=== PATIENT | female | born 1970 | race Caucasian/White ===

== ENCOUNTER → 2017-02-08 | Outpatient (CLI) | payer BC ==
[~2017-02-08] MED LIST: ALBU1AER9 INH; ASPI81TA28 PO
--- NOTE | 2017-02-08 16:38 | MAMMOGRAPHY REPORT ---
BILATERAL DIGITAL SCREENING MAMMOGRAM TOMOSYNTHESIS WITH CAD: 02/08/2017 CLINICAL HISTORY: Routine screening. Patient has no complaints. TECHNIQUE: Breast tomosynthesis in addition to standard 2D mammography was performed. Current study was also evaluated with a Computer Aided Detection (CAD) system. COMPARISON: Comparison is made to exams dated: 02/05/2016 mammogram, 10/23/2013 ultrasound, and 2013 mammogram - [facility]. BREAST COMPOSITION: The tissue of both breasts is extremely dense, which lowers the sensitivity of mammography. FINDINGS: There is a 5 mm nodular asymmetry in the lateral posterior right breast, only seen on the CC view and corresponding tomosynthesis images (slice 27), for which additional spot compression to mosynthesis views and possibly ultrasound are recommended. There is a stable grouping of microcalcifications in the upper outer anterior left breast. No other suspicious mass, architectural distortion or cluster of microcalcifications is seen. IMPRESSION: ACR BI-RADS CATEGORY 0: INCOMPLETE EVALUATION: NEED ADDITIONAL IMAGING EVALUATION The 5 mm nodular asymmetry in the lateral right breast needs additional evaluation. The patient will be called to schedule an appointment. Approximately 10% of breast cancers are not detected with mammography. A negative mammographic repor t should not delay biopsy if a clinically suggestive mass is present. Jennifer Valentine M.D. ay/:02/08/2017 16:27:41 Alumni Relations Manager: Pattie AWAD(Jared)(M), [facility] letter sent: Addl Imaging 0 BI-RADS Code: ACR BI-RADS Category 0: Incomplete Evaluation: Need Additional Imaging Evaluation
== END | disposition home or self-care (01) ==
LOC: C.MAMM 14:38
PROVIDERS: ATTEND Obstetrics & Gynecology
DX: Z12.31 Encounter for screening mammogram for malignant neoplasm of breast (principal); R92.8 Other abnormal and inconclusive findings on diagnostic imaging of breast

== ENCOUNTER → 2017-02-10 | Outpatient (CLI) | payer BC ==
--- NOTE | 2017-02-10 16:16 | MAMMOGRAPHY REPORT ---
UNILATERAL RIGHT DIGITAL DIAGNOSTIC MAMMOGRAM TOMOSYNTHESIS AND TARGETED RIGHT ULTRASOUND: 02/10/2017 CLINICAL HISTORY: 46 year old woman called back from screening mammography for a 5 mm nodular asymmet ry in the lateral right breast. TECHNIQUE: Spot compression right CC and MLO tomosynthesis views were obtained. COMPARISON: Comparison is made to exams dated: 02/08/2017 mammogram, 02/05/2016 mammogram, 10/23/2013 u ltrasound, and 10/23/2013 mammogram - [facility]. BREAST COMPOSITION: The tissue of the right breast is heterogeneously dense, which may obscure small masses. FINDINGS: The 5 mm nodular asymmetry in the lateral right breast is thought to persist with the spot compression CC view, in the lateral middle one third of the breast. No associated architectural dis tortion or cluster microcalcification. On the spot compression MLO view, there is a 4 x 5 mm nodular asymmetry in the superior right breast on the MLO view. Further evaluation with ultrasound was perf ormed in the lateral and superior aspect of the right breast. Targeted ultrasound was performed throughout the lateral and superior right breast. In the 11:30 axi s, 2 cm from the nipple, there is a predominantly anechoic cystic appearing mass measuring 4.9 x 2.3 x 3.9 mm. This cystic mass contains numerous thin internal nonvascular septations or it could repres ent a microcyst cluster. Definitive characterization with ultrasound guided core biopsy is read mend ed to exclude a solid and cystic mass. In the 8:00 right breast, 1 cm from the nipple, there is an o michelle parallel circumscribed isoechoic solid-appearing mass measuring 6.0 x 2.7 x 5.2 mm. This is thou ght to correlate with the nodular asymmetry in the lateral right breast and could represent a benign fibroadenoma. Nevertheless, definitive characterization with ultrasound guided core biopsy is recomm ended. There is lobulated hypoechoic tissue in the 2:00 right breast, thought to simply represent no rmal tissue and stromal fibrosis. No other suspicious solid or cystic mass is seen in the superior l ateral right breast on ultrasound. IMPRESSION: ACR BI-RADS CATEGORY 4B: INTERMEDIATE SUSPICION FOR MALIGNANCY, TARGETED ULTRASOUND ACR BI-RADS CATEGORY 4B: INTERMEDIATE SUSPICION FOR MALIGNANCY Ultrasound-guided core needle biopsy 2 is recommended for a possible solid and cystic 5 mm mass in t he 11:30 right breast, and a solid circumscribed 6 mm mass in the 8:00 right breast. The mass in the 8:00 axis is thought to correlate with the original nodular mammographic asymmetry. These results and recommendations were discussed with the patient at the time of the exam. She is te ntatively scheduled the right breast biopsies prior to leaving our department. Approximately 10% of breast cancers are not detected with mammography. A negative mammographic report should not delay biopsy if a clinically suggestive mass is present. Jennifer Valentine M.D. ay/:02/10/2017 14:18:11 Linux Admin: Pattie AWAD(Jared)(M), [facility] letter sent: Abnormal 4/5 BI-RADS Code: ACR BI-RADS Category 4B: Intermediate Suspicion For Malignancy Ultrasound BI-RADS: ACR BI-RADS Category 4B: Intermediate Suspicion For Malignancy
== END | disposition home or self-care (01) ==
LOC: C.MAMM 08:50
PROVIDERS: ATTEND Obstetrics & Gynecology
DX: R92.2 Inconclusive mammogram (principal); N63 Unspecified lump in breast

== ENCOUNTER → 2017-02-15 | Outpatient (CLI) | payer BC ==
--- NOTE | 2017-02-15 11:00 | Discharge Instructions ---
Discharge Instructions Procedure Procedure Date: Feb 15, 2017. Reason for visit: Right Masses. Discharge Discharge Date: Feb 15, 2017. Discharge Diagnosis: post right breast ultrasound guided core biopsy Instructions Activity Recommendations: Additional Limitations (see below) Return to School/Work: no limitations Recommended Home Diet: No Limitations Provider Instructions: ACTIVITY RECOMMENDATIONS: * No lifting, pushing, pulling or exercising the affected side for three days. RETURN TO SCHOOL/WORK: * You may return to work/school after the procedure, but do not perform any strenuous activities for 24 to 48 hours. MEDICATIONS: * Tylenol (two 325 mg) every four to six hours if needed for mild pain (if not allergic to Tylenol). DIET: * Resume previous diet. SPECIAL CARE INSTRUCTIONS: * Keep biopsy site dry for 24 hours. May shower after 24 hours, but do not soak (bathe) incision. * May remove Tegaderm (plastic patch) tomorrow AFTER showering. * Leave the steri-strips on for one week. Allow the steri-strips to fall off by themselves. If not off after one week, you may remove them. You may place a Bandaid crosswise over the strips, if desired. * Apply ice 10 minutes on and 10 minutes off as needed. * Wear a bra at bedtime to sleep more comfortably for 2-3 days. * Your referring physician should have the results after approximately 5 to 7 business days. * Call for unusual bleeding, fever, drainage, etc or if you have any questions call [phone] during normal business hours or after hours call Dr Valentine, . FOLLOW UP VISIT: Follow-up with Referring Physician as scheduled. Allergies Coded Allergies: Latex1 -Allergic Contact Dermititis (Verified Allergy, Unknown, LOCAL SKIN IRRITATION, 12/24/15) Sulfa Antibiotics (Verified Allergy, Unknown, UNKNOWN - REACTION CHILD , 12/24/15) Britt Thompson Recommendations: Call your doctor if: * Temperature above 101 degrees * Pain not relieved by pain medicine ordered * There is increased drainage or redness from any incision * You have any unanswered questions or concerns. Your Doctors Instructions noted above were prepared by provider Jennifer Valentine. Patient Signature Section: Patient Instructions Signature Page Carly Emmanuelayaka Patient (or Guardian) Signature/Date: I have read and understand the instructions given to me by my caregivers. Caregiver/RN/Doctor Signature/Date: The above-named patient and/or guardian has received patient instructions on this date. + Original Patient Signature Page (only) stays with chart. Please make copy for patient.
--- NOTE | 2017-02-15 12:45 | MAMMOGRAPHY REPORT ---
ULTRASOUND GUIDED BIOPSY: 02/15/2017 CLINICAL HISTORY: Indeterminate solid and cystic mass versus complicated cyst in the 11:[address] Patient presents for ultrasound guided core biopsy. A biopsy was also performed in the 8:00 rig ht breast for a more solid-appearing mass. Please refer to the report from ultrasound guided core biopsy of the right breast, as these procedure s were dictated together. IMPRESSION: ULTRASOUND GUIDED BIOPSY Please refer to the report from ultrasound guided core biopsy of the right breast, as these procedure s were dictated together. Jennifer Valentine M.D. ay/:02/15/2017 12:28:36 Exterior Designer: Mayte LEVY)(Palma), [facility]
--- NOTE | 2017-02-15 12:45 | MAMMOGRAPHY REPORT ---
THIS REPORT HAS BEEN AMENDED. AMENDMENT: 02/16/2017 Jennifer Valentine M.D. Pathology results from the ultrasound-guided core needle biopsy of a solid-appearing circumscribed ma ss in the 8:00 right breast yielded a fibroadenoma. Negative for malignancy. Pathology results from the ultrasound-guided core biopsy of a more cystic appearing mass in the 11:30 right breast yielded benign breast tissue. Negative for in situ and invasive carcinoma. The pathology results are consid ered concordant with the imaging appearance. Given that there is a small amount of hematoma at the site of the biopsy-proven fibroadenoma after th e biopsy, definitive mammographicsonographic correlation for the nodular mammographic asymmetry is n ot demonstrated, but the marker clip appears to be in a good location for the nodular asymmetry. Nev ertheless, a short interval follow-up diagnostic right mammogram and repeat targeted ultrasound in th e right 8:00 and 11:30 axis is recommended to ensure stability in 6 months. These results and recommendations were discussed with the patient at 4:55 PM on 02/16/2017. MULTIPLE ULTRASOUND GUIDED BIOPSIES RIGHT BREAST: 02/15/2017 CLINICAL HISTORY: Indeterminate mixed solid and cystic mass in the 11:30 right breast, and parallel c ircumscribed solid-appearing mass in the 8:00 right breast. Patient presents for ultrasound-guided c ore needle biopsy 2. COMPARISON: Comparison is made to exams dated: 02/10/2017 ultrasound, 02/10/2017 mammogram, 02/08/2017 ma mmogram, 02/05/2016 mammogram, and 10/23/2013 ultrasound - [facility]. PATIENT CONSENT: The procedure, risks and benefits were discussed with the patient and informed writt en consent was obtained. Specific risks to this procedure include: bleeding, infection, puncture of a djacent structure, pain, medication reaction, nontarget biopsy, sampling error and metal allergy. PROCEDURE DESCRIPTION: A time out was performed and the right breast was agreed as the site of both b iopsies. The skin was prepped and draped in the usual sterile fashion. First, homogeneous solid-blanca earing mass in the 8:00 right breast was chosen as the target for biopsy. Subcutaneous and intraparen chymal 1% buffered lidocaine, with and without epinephrine was administered as local anesthesia. A sk in incision was made. Through the incision, 3 samples were taken with a 14 gauge Achieve biopsy tamela ce. A ribbon shaped metallic marker was placed at the biopsy site. Hemostasis was achieved after manu al compression. The patient tolerated the procedure well and there was no immediate complication. Then the mixed solid and cystic predominantly cystic mass in the 11:30 right breast was identified an d targeted for biopsy. Additional 1% buffered lidocaine without epinephrine was administered. A sma ll skin incision was made. Through the incision, 3 samples were obtained with a 14-gauge achieve bio psy device. A wing-shaped metallic marker was placed at this biopsy site. Hemostasis was achieved a fter several minutes of manual compression. The patient tolerated the procedure well and there was n o immediate competition. All of the samples were sent to the pathology department in appropriately l abeled containers. Post procedure right CC and ML tomosynthesis images were obtained. There is minimal hematoma versus prominent lidocaine administration surrounding wing-shaped metallic biopsy marker in the 11:30 right breast. 15 mm hematoma surrounds the ribbon-shaped clip in the 8:00 right breast. The ribbon-shaped biopsy marker appears to align with the original nodular mammographic asymmetry in question. IMPRESSION: ULTRASOUND GUIDED BIOPSY Status post ultrasound-guided core needle biopsy 2 in the right breast. The ribbon-shaped biopsy ma rker denoting the biopsy in the 8:00 axis is thought to align with the original mammographic asymmetr edelmira Valentine M.D. ay/:02/15/2017 12:33:25 Filament Wound Parts Fabricator: Mayte HAYWARD (R)), [facility]
--- NOTE | 2017-02-15 12:46 | MAMMOGRAPHY REPORT ---
UNILATERAL RIGHT DIGITAL DIAGNOSTIC MAMMOGRAM TOMOSYNTHESIS: 02/15/2017 CLINICAL HISTORY: Status post ultrasound-guided core needle biopsy 2 in the right breast. Please refer to the report from right breast ultrasound-guided core needle biopsy performed [facility] time for full detail. IMPRESSION: POST PROCEDURE IMAGING FOR MARKER PLACEMENT Please refer to the report from right breast ultrasound-guided core needle biopsy performed [facility] the [facility] time for full detail. Approximately 10% of breast cancers are not detected with mammography. A negative mammographic report should not delay biopsy if a clinically suggestive mass is present. Jennifer Valentine M.D. ay/:02/15/2017 11:03:41 Piano Instructor: Mayte LEVY)(Palma), [facility] BI-RADS Code: Post Procedure Imaging For Marker Placement
== END | disposition home or self-care (01) ==
LOC: C.MAMM 09:55
PROVIDERS: ATTEND Obstetrics & Gynecology
DX: D24.1 Benign neoplasm of right breast (principal)